=== PATIENT | male | born 1990 ===

== ENCOUNTER 2017-11-20 11:01 | Emergency (ER) | payer OTHER ==
[~2017-11-20] VITALS: Ht 167.6 cm; Wt 90.0 kg
[2017-11-20 11:08] VITALS: BP 124/65; PULSE 95; RESP 16; TEMP 97.9; O2SAT 98
[2017-11-20] MEDS ORDERED: AZITHROMYCIN PWD FOR SUSP 1 GM PACKET PO ONE (11:30)
[2017-11-20] MEDS ORDERED: metroNIDAZOLE 500 MG TAB PO ONE (11:30)
[2017-11-20] MEDS ORDERED: LIDOCAINE HCL 1% 50 ML VIAL IM ONE (11:30)
[2017-11-20] MEDS ORDERED: cefTRIAXone 250 MG VIAL IM ONE (11:30)
[2017-11-20] MEDS ORDERED: ONDANSETRON ODT 4 MG TAB PO ONE (11:30)
--- NOTE | 2017-11-20 11:31 | PD ---
HPI Chief Complaint: Complaint Time Seen by Provider: 11:16 Travel History International Travel<30 days: No Contact w/Intl Traveler<30days: No Traveled to known affect area: No History of Present Illness HPI 26-year-old male presents to the emergency department with complaint of being exposed to chlamydia. He had sexual intercourse with a partner on Saturday night night and when they woke up on Saturday morning she advised him that she had chlamydia. He tried following up with his PCP but they could not see him for 2 weeks and he wanted to be treated immediately. He reports dysuria. Otherwise denies penile discharge, pain, swelling. Denies testicular pain or swelling. Denies abdominal pain, fever, vomiting. Has not taken any medications or tried treatments to alleviate his symptoms. Symptoms are mild in severity. No known aggravating or relieving factors. Denies significant past medical history. No known allergies. Primary CARE providers Dr. Perez. Has no other medical complaints. No other modifying factors or associated signs and symptoms. [facility] Social History Tobacco Use: No Allergies-Medications (Allergen,Severity, Reaction): Coded Allergies: No Known Allergies (Unverified , 11/20/17) Review of Systems Except as stated in HPI: all other systems reviewed are Neg Physical Exam Narrative GENERAL: Well-nourished, well-developed male patient, in no acute distress SKIN: Warm and dry. HEAD: Atraumatic. Normocephalic. EYES: Pupils equal and round. ENT: Mucosa pink and moist. NECK: Trachea midline. No lymphadenopathy. CARDIOVASCULAR: Regular rate. RESPIRATORY: No accessory muscle use. GASTROINTESTINAL: Flat.. GENITOURINARY: Exam done in the presence of a nurse. Circumcised. Testes descended bilaterally without evidence of rotation. No lesions or erythema. No urethral discharge. MUSCULOSKELETAL: No obvious deformities. No clubbing. No cyanosis. No edema. NEUROLOGICAL: Awake and alert. Oriented 3. No obvious cranial nerve deficits. Motor grossly within normal limits. Normal speech. Moves all extremities. 5/5 strength to all extremities. PSYCHIATRIC: Appropriate mood and affect; insight and judgment normal. Data Data Last Documented VS Vital Signs Date Time Temp Pulse Resp B/P (MAP) Pulse Ox O2 Delivery O2 Flow Rate FiO2 11/20/17 11:08 97.9 95 16 124/65 (84) 98 Orders Orders Azithromycin Powd Pack (Zithromax Powd P (6/20/18 11:30) Ceftriaxone Inj (Rocephin Inj) (11/20/17 11:30) Lidocaine 1% Inj (50 Ml) (Xylocaine 1% I (11/20/17 11:30) Metronidazole (Flagyl) (11/20/17 11:30) Ondansetron Odt (Zofran Odt) (11/20/17 11:30) Gc And Chlamydia Pcr (11/20/17 11:17) Urinalysis - C+S If Indicated (11/20/17 11:31) Ed Discharge Order (11/20/17 11:35) Labs Laboratory Tests Test 11/20/17 11:50 Urine Color YELLOW Urine Turbidity CLOUDY Urine pH 8.0 Urine Specific [place] 1.019 Urine Protein NEG mg/dL Urine Glucose (UA) NEG mg/dL Urine Ketones NEG mg/dL Urine Occult Blood NEG Urine Nitrite NEG Urine Bilirubin NEG Urine Urobilinogen LESS THAN 2 mg/dL Urine Leukocyte Esterase NEG Urine RBC LESS THAN 1 /hpf Urine WBC 1 /hpf Microscopic Urinalysis Comment CULT NOT INDICATED MDM Medical Decision Making Medical Screen Exam Complete: Yes Emergency Medical Condition: Yes Medical Record Reviewed: Yes Differential Diagnosis Exposure to chlamydia, chlamydia, gonorrhea, trichomonas, UTI Narrative Course 26-year-old male with exposure to chlamydia and having dysuria. I will treat the patient empirically for exposure to chlamydia. Rocephin, azithromycin, Flagyl, Zofran administered in the ER. Urinalysis, chlamydia, gonorrhea ordered. 1300: Urinalysis without signs of infection. Instructed patient to follow-up with PCP and/or [facility] department for complete STD screening. Instructed patient to follow up with primary care provider. Patient verbalizes understanding and agreement with treatment plan. Patient is medically cleared and stable for discharge. Discussed reasons to return to the emergency department. Patient agrees with treatment plan. The patients vital signs are stable and the patient is stable for outpatient follow-up and treatment. Patient discharged home, stable and in no acute distress. Diagnosis Primary Impression: Exposure to chlamydia Referrals: Primary Care Physician [facility] Dept. Patient Instructions: Chlamydia (ED), General Instructions, Gonorrhea (ED), Sexually Transmitted Diseases (ED) Additional Instructions: Avoid sexual activity for 14 days No sexual activity with your partner/s until they have been treated and waited 14 days Inform all sexual partners within the past 3-6 months that they need to be evaluated and treated Use condoms every time you have sex Follow-up with primary care provider Return to the emergency department immediately with worsening of symptoms Med/Other Pt SpecificInfo: No Change to Meds, No Meds Exist/No RX given Disposition: 01 DISCHARGE HOME Condition: Stable Frieda Clark [employer] Nov 20, 2017 11:31
[2017-11-20 12:31] LABS: BILIRUBIN, URINE NEG (NEG); BLOOD, URINE NEG (NEG); GLUCOSE,URINE NEG (NEG); KETONE, URINE NEG (NEG); NITRITE,URINE NEG (NEG); URINE COLOR YELLOW (YELLW/STRAW); URINE LEUKOCYTE ESTERASE NEG (NEG)
== END 2017-11-20 12:46 | disposition home or self-care (01) ==
LOC: NEPK 11:01
DX: Z20.2 Contact with and (suspected) exposure to infections with a predominantly sexual mode of transmission (principal); R30.0 Dysuria
CPT/HCPCS: 81001; 87491; 87591; 96372; 99283; J0696